=== PATIENT | female | born 1975 | race Caucasian/White ===

== ENCOUNTER 2016-08-11 00:34 | Emergency (ER) | payer OTHER ==
[~2016-08-11 00:34] MED LIST: ALEVE220 M1 PO; BENTYL20 MG PO; FLEXERIL10 MG PO; NO MEDICATIONS; PRENATAL MULTIV1 TA1; PYRIDIUM100 MG PO; VOLTAREN75 MG PO; ZOFRAN ODT4 MG SL
== END 2016-08-11 01:43 | disposition home or self-care (01) ==
LOC: SED 00:34
DX: S01.81XA Laceration without foreign body of other part of head, initial encounter (principal); S60.222A Contusion of left hand, initial encounter; S80.11XA Contusion of right lower leg, initial encounter; F41.9 Anxiety disorder, unspecified; F17.200 Nicotine dependence, unspecified, uncomplicated; Y04.8XXA Assault by other bodily force, initial encounter; Y92.009 Unspecified place in unspecified non-institutional (private) residence as the place of occurrence of the external cause
CPT/HCPCS: 99284

== ENCOUNTER 2016-08-13 10:30 | Emergency (ER) | payer OTHER ==
[2016-08-13] MEDS ORDERED: DICLOFENAC PO (10:35)
== END 2016-08-13 11:12 | disposition home or self-care (01) ==
LOC: SED 10:30
DX: T81.4XXA Infection following a procedure, initial encounter (principal); F17.200 Nicotine dependence, unspecified, uncomplicated; Z79.899 Other long term (current) drug therapy
CPT/HCPCS: 99283

== ENCOUNTER 2016-08-21 14:10 | Emergency (ER) | payer OTHER ==
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
[~2016-08-21 14:10] MED LIST changes: +DICLOFENAC PO
[2016-08-21] MEDS ORDERED: AUGMENTIN PO (14:15)
== END 2016-08-21 17:39 | disposition home or self-care (01) ==
LOC: SED 14:10
DX: S80.11XA Contusion of right lower leg, initial encounter (principal); Y04.0XXA Assault by unarmed brawl or fight, initial encounter; Y92.9 Unspecified place or not applicable; F17.210 Nicotine dependence, cigarettes, uncomplicated
CPT/HCPCS: 73590; 73610; 73630; 99283

== ENCOUNTER 2016-09-10 08:37 | Emergency (ER) | payer OTHER ==
--- NOTE | ~2016-09-10 | US85 ---
[facility] A Service [facility] RADIOLOGY TEXT RESULTS PATIENT: ANGELIC SANCHEZ LOCATION: SED : 71 UNIT #: [id number] AGE: [address]: Michael Sales MD SEX: F ORDER DR: [id number] [place] [address] [id number] E MR#: [id number] Acc #: [id number] NAME: ANGELIC SANCHEZ : 1975 SEX: F STUDY DATE/TIME: 09/10/2016 9:36 UNIT: SED ROOM: STUDY DESCRIPTION: [facility] or [facility] Attending Physician: Michael Sales M.D. Ordering Physician: Michael Sales M.D. Primary Care Physician: Primary Care Physician No MEDICAL IMAGING REPORT This report is preliminary unless electronic signature is present. EXAM Right leg vein Doppler 09/10/2016 INDICATION Right leg pain and swelling for 5 days. TECHNIQUE Venous ultrasound examination of the right lower extremity was performed using grayscale, spectral Doppler and color flow Doppler imaging. FINDINGS The examination is negative. There is no evidence of right lower extremity deep venous thrombus from the groin to the lower calf. Visualized greater saphenous vein is also patent. IMPRESSION Negative examination. No evidence of right lower extremity deep venous thrombosis. Dictated by... Sushil Groves Jr., M.D. THIS IS AN ELECTRONICALLY VERIFIED REPORT Sushil Groves Jr., M.D. at 09/11/2016 4:34 PM BREEZY/joni TD: 09/10/2016 13:48 JOB #: [id number] MEDICAL IMAGING REPORT [facility] A Service [facility] RADIOLOGY TEXT RESULTS PATIENT: ANGELIC SANCHEZ LOCATION: SED : 71 UNIT #: [id number] AGE: [address]: Michael Sales MD SEX: F ORDER DR: Page 1 of 1
[~2016-09-10 08:37] MED LIST changes: +AUGMENTIN PO
[2016-09-10] MEDS ORDERED: NO MEDICATIONS (08:41)
== END 2016-09-10 10:10 | disposition home or self-care (01) ==
LOC: SED 08:37
DX: R60.0 Localized edema (principal); M79.604 Pain in right leg; F17.200 Nicotine dependence, unspecified, uncomplicated
CPT/HCPCS: 93971; 99284

== ENCOUNTER → 2016-10-09 | Outpatient (CLI) | payer OTHER ==
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
== END | disposition home or self-care (01) ==
LOC: SRAD 10:06
DX: R60.0 Localized edema (principal); M19.071 Primary osteoarthritis, right ankle and foot
CPT/HCPCS: 73590; 73630